=== PATIENT | female | born 1950 | race African-American/Black ===

== ENCOUNTER 2022-08-29 17:42 | Emergency (ER) | payer MEDICARE, OTHER ==
[~2022-08-29] VITALS: Ht 165.1 cm; Wt 89.0 kg
[2022-08-29 17:54] VITALS: O2SAT 100
[2022-08-29] MEDS ORDERED: CLONIDINE 0.2MG TABLET PO ONE (18:45)
[2022-08-29] MEDS ORDERED: FLUORESCEIN SODIUM 1MG/STRIP RIGHTEYE ONE (18:45)
[2022-08-29] MEDS ORDERED: CLONIDINE 0.1MG TABLET PO NR (19:30)
[2022-08-29] MEDS ORDERED: TETRACAINE 0.5% OPHTH DROPS 4ML RIGHTEYE ONE (20:15)
[2022-08-29] MEDS ORDERED: OFLO5DRO RIGHTEYE (21:07)
[2022-08-29] MEDS ORDERED: IBUP-2028 MT (21:07)
[2022-08-29 21:20] VITALS: BP 188/101; PULSE 83; RESP 20; TEMP 98.6
== END 2022-08-29 21:27 | disposition home or self-care (01) ==
LOC: ER 17:42
DX: H57.11 Ocular pain, right eye (principal); I10 Essential (primary) hypertension; E11.9 Type 2 diabetes mellitus without complications
CPT/HCPCS: 99283

== ENCOUNTER 2023-11-19 19:37 | Emergency (ER) | payer MEDICARE, OTHER ==
[~2023-11-19] VITALS: Ht 167.6 cm; Wt 33254.0 kg
[~2023-11-19 19:37] MED LIST: IBUP-2028 MT; OFLO5DRO RIGHTEYE
[2023-11-19 19:57] VITALS: O2SAT 100
[2023-11-19 22:55] LABS: BASOPHILS % 0.2 % (0.0-2.0); EOSINOPHILS % 0.5 % (0.0-5.0); HEMATOCRIT. 36.5 % (36.0-48.0); HEMOGLOBIN. 11.6 g/dL (12.0-16.0); LYMPHOCYTES % 20.5 % (20.0-50.0); MEAN CORPUSCULAR HEMOGLOBIN 27.8 pg (28.0-32.0); MEAN CORPUSCULAR HGB CONC 31.6 g/dL (31.0-37.0); MEAN CORPUSCULAR VOLUME 87.9 fL (81.0-99.0); MEAN PLATELET VOLUME 7.6 fl (7.4-10.4); MONOCYTES % 3.3 % (2.0-8.0); NEUTROPHILS % 75.5 % (40.0-76.0); PLATELET 236 x1000/uL (130-400); RED BLOOD CELL COUNT 4.16 mill/uL (4.2-5.4); RED CELL DISTRIBUTION WIDTH 13.8 % (11.6-14.6)
[2023-11-19 22:58] LABS: CHLORIDE 107 mEq/L (98-107); POTASSIUM 4.4 mEq/L (3.5-5.1); SODIUM 140 mEq/L (136-145)
[2023-11-19 22:59] LABS: CALCIUM 10.2 mg/dL (8.7-10.4); CARBON DIOXIDE 29 mEq/L (21-32)
[2023-11-19 23:04] LABS: CREATININE 1.1 mg/dL (0.6-1.0); GLUCOSE 165 mg/dL (70-105); UREA NITROGEN BLOOD 15 mg/dL (9-23)
[2023-11-19 23:06] LABS: ALANINE AMINOTRANSFERASE 10 IU/L (10-49); ALBUMIN 4.8 g/dL (3.2-4.8); ASPARTATE AMINOTRANSFERASE 18 IU/L (<34); BILIRUBIN TOTAL 0.3 mg/dL (0.1-1.0); PROTEIN TOTAL 8.3 g/dL (6.0-8.3)
[2023-11-19 23:07] LABS: TROPONIN I HIGH SENSITIVITY < 4 ng/L (3.0-34)
[2023-11-20] MEDS: SODIUM CHLORIDE 0.9% 1,000 ML IV ONE (01:44)
[2023-11-20 02:17] LABS: TROPONIN I HIGH SENSITIVITY < 4 ng/L (3.0-34)
[2023-11-20 03:32] LABS: CLARITY URINE CLEAR (CLEAR); COLOR URINE YELLOW (YELLOW); GLUCOSE URINE NEGATIVE (NEGATIVE); KETONES URINE NEGATIVE (NEGATIVE); LEUKOCYTE ESTERASE URINE TRACE (NEGATIVE); NITRITE URINE NEGATIVE (NEGATIVE); OCCULT BLOOD URINE TRACE (NEGATIVE); PH URINE 6.5 (4.5-8.0); PROTEIN URINE NEGATIVE (NEGATIVE); SPECIFIC GRAVITY URINE 1.008 (1.005-1.030); UROBILINOGEN URINE 0.2 E.U./dL (0.2-1.0)
[2023-11-20 04:52] LABS: RBC URINE NONE SEEN /hpf (0-2); WBC URINE 0-2 /hpf (0-2)
[2023-11-20 04:53] LABS: BACTERIA URINE NONE SEEN; SQUAMOUS EPITHELIAL CELL URINE NONE SEEN /lpf (RARE/1+)
[2023-11-20 05:06] VITALS: TEMP 36.83628
[2023-11-20 06:35] VITALS: BP 146/64; PULSE 71; RESP 18; O2SAT 100
== END 2023-11-20 07:01 | disposition short-term general hospital (02) ==
LOC: ER 19:37 → EDBEDREQ 11-20 05:01 → EDBEDREQTM 11-20 05:01 → ER 11-20 07:01
DX: R41.0 Disorientation, unspecified (principal); E11.9 Type 2 diabetes mellitus without complications; I25.2 Old myocardial infarction; I10 Essential (primary) hypertension; Z00.00 Encounter for general adult medical examination without abnormal findings
CPT/HCPCS: 99285; 71045; 80053; 85025; 84484 ×2; 36415 ×2; 93005; 96360; 70450; 96361; 81003; J7030